=== PATIENT | female | born 1960 | race Caucasian/White ===

== ENCOUNTER 2018-07-11 07:34 | Outpatient (CLI) | payer OTHER | END 2018-07-11 07:46 | disposition home or self-care (01) | LOC: LAB 07:34 | DX: D68.8 Other specified coagulation defects (principal); E78.2 Mixed hyperlipidemia; N39.0 Urinary tract infection, site not specified; R07.89 Other chest pain ==

== ENCOUNTER → 2018-07-14 13:18 | Outpatient (CLI) | payer OTHER | END | disposition home or self-care (01) | LOC: EKG 13:18 | DX: I10 Essential (primary) hypertension (principal) ==

== ENCOUNTER 2019-03-24 09:19 | Day surgery (SDC) | payer OTHER ==
[~2019-03-24 09:19] MED LIST: SYNTHROID75 MCG PO
== END 2019-03-24 18:00 | disposition home or self-care (01) ==
LOC: CIR.AMB 09:19
DX: R93.89 Abnormal findings on diagnostic imaging of other specified body structures (principal)